=== PATIENT | female | born 1980 | race Hispanic/Latino ===

== ENCOUNTER 2016-05-20 17:43 | Emergency (ER) | payer OTHER ==
[~2016-05-20] VITALS: Ht 149.9 cm; Wt 68.4 kg
[~2016-05-20 17:43] MED LIST: HYDROCODON-ACE1 EAC7 PO; IBUPROFEN800 MG PO
[2016-05-20 19:23] LABS: EOSINOPHIL (%) 1.5 % (0-5); EOSINOPHIL COUNT 0.1 K/uL (0-0.3); HEMATOCRIT 40.2 % (36.0-46.0); IMMATURE GRANULOCYTE (%) 0.3 % (0.0-0.7); IMMATURE GRANULOCYTE COUNT 0.3 K/uL; LYMPHOCYTE COUNT 2.9 K/uL (1.0-2.8); MCH 28.5 PG (29.0-34.0); MCHC 34.8 G/DL (30.0-36.0); MCV 81.7 FL (83-99); MEAN PLAT.VOLUME 9.8 uM^3 (9.5-12.4); MONOCYTE (%) 5.5 % (3-12); MONOCYTE COUNT 0.5 K/uL (0-0.8); NEUTROPHIL (%) 59.7 % (45-76); NEUTROPHIL COUNT 5.3 K/uL (1.8-6.4); PLATELET COUNT 294 K/uL (156-360); RBC DIS.WIDTH-CV 12.8 % (11.8-14.6); RBC DIS.WIDTH-SD 37.1 % (39-53); RED BLOOD COUNT 4.92 M/uL (3.80-5.20); WHITE BLOOD COUNT 8.9 K/uL (4.1-10.2)
[2016-05-20 19:30] LABS: CHLORIDE 105 mEq/L (99-109); POTASSIUM 3.7 mEq/L (3.7-5.4); SODIUM 138 mEq/L (136-147)
[2016-05-20 19:33] LABS: GLUCOSE 98 mg/dL (70-99)
[2016-05-20 19:34] LABS: ANION GAP 13 MEQ/L (2-14)
[2016-05-20 19:35] LABS: TOTAL BILIRUBIN 0.4 mg/dL (0.0-1.0)
[2016-05-20 19:36] LABS: ALKALINE PHOSPHATASE 76 IU/L (3-129)
[2016-05-20 19:37] LABS: GFR ESTIMATE (CALCULATED) > 59 mL/min/
[2016-05-20 19:38] LABS: DIRECT BILIRUBIN 0.1 mg/dL (0.0-0.3); UREA NITROGEN (BUN) 12 mg/dL (9-23)
[2016-05-20 19:45] LABS: QUANTITATIVE HCG < 4.0 MIU/ML
[2016-05-20 20:18] VITALS: BP 133/78
[2016-05-21 10:33] LABS: AHBS INDEX 84.43; HEPATITIS B SURFACE ANTIBODY REACTIVE; HIV INDEX 0.07; HIV-1/2 AB/AG COMBO Nonreactive; HPCA INDEX 0.13
== END 2016-05-20 20:19 | disposition home or self-care (01) ==
LOC: EME 17:43
PROVIDERS: Nurse Practitioner Family
DX: S61.032A Puncture wound without foreign body of left thumb without damage to nail, initial encounter (principal); Z77.21 Contact with and (suspected) exposure to potentially hazardous body fluids; W46.1XXA Contact with contaminated hypodermic needle, initial encounter
CPT/HCPCS: 80048; 80076; 84702; 85025; 86703; 86706; 86803; 99281; 99283